=== PATIENT | female | born 1940 | race Caucasian/White ===

== ENCOUNTER 2017-02-15 00:12 | Emergency (ER) | payer MEDICARE ==
[~2017-02-15] VITALS: Ht 142.2 cm; Wt 81.6 kg
[~2017-02-15 00:12] MED LIST: AMLO10TA2; BENA10TA2; HYDR-4077 PO; METO-304 PO; RIVA10TA PO
--- NOTE | 2017-02-15 00:54 | NUR ---
PT PRESENTED TO THE ER WITH A C/O ELEVATED BP. PT TOOK MEDICATION AT HOME, BUT BP WAS STILL HIGH. PT AMBULATED TO BED #3. URINE SAMPLE OBTAINED AND SENT TO LAB. PT CHANGED INTO A GOWN AND WAS PLACED ON THE MONITOR AND CONTINUOUS PULSE OX. PT'S RESP EVEN AND UNLABORED. NO S/S OF PAIN OR DISTRESS NOTED.
--- NOTE | 2017-02-15 02:05 | NUR ---
DR. KOTHARI IS AT THE BEDSIDE.
--- NOTE | 2017-02-15 02:44 | NUR ---
PT APPEARS TO BE RESTING COMFORTABLY WITH NO S/S OF PAIN OR DISTRESS. VSS. RESP EVEN AND UNLABORED.
--- NOTE | 2017-02-15 02:53 | NUR ---
Patient discharged to home in stable condition. Written and verbal after care instructions given. Patient verbalizes understanding of instruction. PT WAS INSTRUCTED NOT TO TAKE EXTRA MEDICATION. PT'S VSS. PT'S IS DRIVING PT HOME. PT AMBULATED OUT WITH A STEADY GAIT.
[2017-02-15 03:02] VITALS: BP 114/54
== END 2017-02-15 02:53 | disposition home or self-care (01) ==
LOC: ER 00:14
DX: I10 Essential (primary) hypertension (principal); I48.91 Unspecified atrial fibrillation
CPT/HCPCS: A4606; A6402; Z7610